=== PATIENT | male | born 2000 | race Caucasian/White ===

== ENCOUNTER 2018-09-11 02:04 | Emergency (ER) | payer SELFPAY ==
[~2018-09-11] VITALS: Ht 167.6 cm; Wt 64.0 kg
[2018-09-11 02:13] VITALS: Ht 167.6 cm; Wt 64.0 kg
[2018-09-11 03:15] VITALS: BP 118/71
== END 2018-09-11 03:15 | disposition home or self-care (01) ==
LOC: ED 02:04
DX: L29.9 Pruritus, unspecified (principal); R21 Rash and other nonspecific skin eruption; Z98.890 Other specified postprocedural states